=== PATIENT | male | born 1990 ===

== ENCOUNTER 2022-01-14 05:54 | Inpatient (IN) | payer OTHER ==
[~2022-01-14] VITALS: Ht 172.7 cm; Wt 66.8 kg
[2022-01-14 06:06] LABS: PCO2 Arterial 33.8 mmHg (35-45); PO2 Arterial 368 mmHg (80-100)
[2022-01-14 06:12] LABS: BASOPHILS ABSOLUTE AUTO 0.04 K/mm3 (0.00-0.23); BASOPHILS PERCENT AUTO 0 % (0-2); EOSINOPHILS ABSOLUTE AUTO 0.02 K/mm3 (0.00-0.68); EOSINOPHILS PERCENT AUTO 0 % (0-6); Hematocrit 51.2 % (37.0-53.0); IMMATURE GRAN ABSOLUTE AUTO 0.24 K/mm3 (0.00-0.10); IMMATURE GRAN PERCENT AUTO 2 % (0-1); LYMPHOCYTES ABSOLUTE AUTO 2.94 K/mm3 (0.84-5.20); LYMPHOCYTES PERCENT AUTO 20 % (21-46); MONOCYTES ABSOLUTE AUTO 0.81 K/mm3 (0.16-1.47); MONOCYTES PERCENT AUTO 6 % (4-13); Mean Corpuscular HGB 32.2 pg (26.0-34.0); Mean Corpuscular HGB Conc 35.2 g/dL (31.5-36.5); Mean Corpuscular Volume 92 fL (80-100); Mean Platelet Volume 10.8 fL (9.1-12.4); NEUTROPHILS ABSOLUTE AUTO 10.81 K/mm3 (1.96-9.15); NEUTROPHILS PERCENT AUTO 73 % (41-73); Platelet Count 255 K/mm3 (150-400); RDW Standard Deviation 40.1 fL (35.1-46.3); Red Blood Cell Count 5.59 M/mm3 (4.30-5.90); White Blood Cell Count 14.86 K/mm3 (4.00-11.30)
[2022-01-14 06:40] LABS: Alanine Aminotransfer (ALT/SGP 40 U/L (12-78); Albumin, Blood 4.5 g/dL (3.4-5.0); Albumin/Globulin Ratio 1.2 (0.8-1.8); Alk Phos 49 U/L (50-136); Anion Gap 12 mmol/L (6-16); Aspartate Aminotrans (AST/SGOT 33 U/L (12-37); Bilirubin, Total 1.1 mg/dL (0.1-1.0); Blood Urea Nitrogen 17 mg/dL (8-24); Bun/Creatinine Ratio 17.7 (12.0-20.0); CO2, Blood 22 mmol/L (21-32); Calcium, Blood 9.2 mg/dL (8.5-10.1); Chloride, Blood 104 mmol/L (98-108); Creatinine, Blood 0.96 mg/dL (0.60-1.20); Globulin, Blood 3.8 g/dL (2.2-4.0); Glomerular Filtration Rate >60 (60-); Glucose, Blood 188 mg/dL (70-99); Potassium, Blood 3.5 mmol/L (3.5-5.5); Sodium, Blood 138 mmol/L (136-145); Total Protein, Blood 8.3 g/dL (6.4-8.2)
[2022-01-14 07:15] LABS: U Amphetamine Screen Not Detected; U Barbituate Screen Not Detected; U Benzodiazapine Screen Not Detected; U Buprenorphine Screen Not Detected; U Cannabinoids Screen Not Detected; U Cocaine Screen Not Detected; U Methadone Screen Not Detected; U Methamphetamine Screen Not Detected; U Opiates Screen Not Detected; U Oxycodone Screen Not Detected; U Phencyclidine Screen Not Detected; U Propoxyphene Screen Not Detected
--- NOTE | 2022-01-14 09:30 | NUR ---
ADMIT PT ARRIVED TO ICU ROOM 11 VIA ER YISSEL AT 0900. PT IS INTUBATED AND SEDATED WITH PROPOFOL AT 40 MCG/KG/MIN. PT TRANSFERED TO ICU BED AND VENT. VENT SETTINGS AC 16, TV 450, PEEP 5, FIO2 50%. PT WITH COPIOUS CLEAR ORAL SECRETIONS. VITAL SIGNS STABLE. OGT IN PLACE. PEREZ TEMP PROBE IN PLACE WITH YELLOW URINE OUTPUT NOTED. PT WITH SCATTERED BLISTERS/MAYBERRY/BRUISING NOTED. SEE PHOTOS IN CHART. PT WITH C SPINE COLLAR IN PLACE. COLLAR TO REMAIN IN PLACE PER DR HOOKER. SBW RESTRAINTS IN PLACE. PT MOVES ALL EXTREMITIES TO NOXIOUS STIMULI. WILL CONTINUE TO MONITOR.
--- NOTE | 2022-01-14 12:16 | NUR ---
BRONCH PT BRONCHED BY DR DALLAS AT BEDSIDE. PT PREMEDICATED WITH 2 MG VERSED IV, 50 MCG FENTANYL IV, AND 40 MG ROCURONIUM IV. PROPOFOL INCREASED TO 70 MCG/KG/MIN. PT WITH LARGE AMOUNT OF BLACK SOOT NOTED DURING BRONCH. PT MED WITH ADDITIONAL 2 MG VERSED IV DURING BRONCH. VITAL SIGNS REMAINED STABLE. ETT WITHDRAWN BY RT TO 23 CM AT TEETH. PLAN TO KEEP PT INTUBATED THIS SHIFT. WILL CONTINUE TO MONITOR.
--- NOTE | 2022-01-14 13:50 | NUR ---
WOUND CARE DR HOOKER AT BEDSIDE. ASSISTED DR HOOKER WITH WOUND CLEANSE AND APPLICATION OF NEW DRESSINGS. NEW PHOTOS TAKEN.
[2022-01-14] MEDS ORDERED: OLAN5 PO (15:11)
[2022-01-14] MEDS ORDERED: BENZ1 PO (15:16)
--- NOTE | 2022-01-14 16:50 | NUR ---
SHIFT SUMMARY PT REMAINS INTUBATED AND SEDATED. VENT SETTINGS UNCHANGED. PT SEDATED WITH PROPOFOL AT 60 MCG/KG/MIN. LR INFUSING AT 150 ML/HR. PT GRIMMACES TO ANY MOVEMENT OR NOXIOUS STIMULI. PT MED WITH FENTANYL PRN PER EMAR. OGT IN PLACE TO LIS, MINIMAL OUTPUT NOTED. PEREZ TEMP PROBE REMAINS IN PLACE WITH DARK, CLOUDY, YELLOW URINE OUTPUT. WOUNDS TO BLE'S UNCHANGED. DRESSINGS REMAIN INTACT. SBW RESTRAINTS REMAIN IN PLACE. VITAL SIGNS STABLE. WILL CONTINUE TO MONITOR AND REPORT OFF TO ONCOMING RN.
--- NOTE | 2022-01-14 19:00 | NUR ---
ASSUMED CARE ASSUMED CARE OF PATIENT. REMAINS INTUBATED- AC/VC+ 16/450/5/30%. ETT 7.5, 24CM AT TEETH. SEDATED WITH PROPOFOL AT 60MCG/KG/MIN. WITHDRAWS EXTREMITIES TO NOXIOUS STIMULI. SLIGHT AMOUNT OF SPONTANEOUS MOVEMENT NOTED WITH NOXIOUS STIMULI. BILATERAL SOFT WRIST RESTRAINTS IN PLACE TO PREVENT SELF-EXTUBATION. MONITOR SHOWS NSR, RATE 90s. BP STABLE. TEMP 101.4F VIA PEREZ TEMP PROBE. OG TO LIS WITH BROWN DRAINAGE. PEREZ PATENT AND DRAINING TO GRAVITY- PINKISH-ORANGE URINE WITH SEDIMENT NOTED. ABRASION NOTED TO LEFT FOREARM. BILATERAL LOWER EXTREMITIES WITH DRSGS INTACT- PHOTOS OF WOUNDS ON CHART. LR INFUSING AT 150CC/HR PER ORDER. SEE SHIFT ASSESSMENT FOR FULL ASSESSMENT.
[2022-01-15 03:25] LABS: BASOPHILS ABSOLUTE AUTO 0.03 K/mm3 (0.00-0.23); BASOPHILS PERCENT AUTO 0 % (0-2); EOSINOPHILS ABSOLUTE AUTO 0.08 K/mm3 (0.00-0.68); EOSINOPHILS PERCENT AUTO 1 % (0-6); Hematocrit 45.8 % (37.0-53.0); Hemoglobin 16.3 g/dL (13.5-17.5); IMMATURE GRAN ABSOLUTE AUTO 0.06 K/mm3 (0.00-0.10); IMMATURE GRAN PERCENT AUTO 0 % (0-1); LYMPHOCYTES ABSOLUTE AUTO 2.06 K/mm3 (0.84-5.20); LYMPHOCYTES PERCENT AUTO 14 % (21-46); MONOCYTES ABSOLUTE AUTO 1.35 K/mm3 (0.16-1.47); MONOCYTES PERCENT AUTO 10 % (4-13); Mean Corpuscular HGB 32.5 pg (26.0-34.0); Mean Corpuscular HGB Conc 35.6 g/dL (31.5-36.5); Mean Corpuscular Volume 91 fL (80-100); Mean Platelet Volume 11.1 fL (9.1-12.4); NEUTROPHILS ABSOLUTE AUTO 10.69 K/mm3 (1.96-9.15); NEUTROPHILS PERCENT AUTO 75 % (41-73); Platelet Count 182 K/mm3 (150-400); RDW Coefficient Variation 12.2 % (11.7-14.2); RDW Standard Deviation 40.5 fL (35.1-46.3); Red Blood Cell Count 5.01 M/mm3 (4.30-5.90); White Blood Cell Count 14.27 K/mm3 (4.00-11.30)
[2022-01-15 03:46] LABS: Alanine Aminotransfer (ALT/SGP 28 U/L (12-78); Albumin, Blood 3.2 g/dL (3.4-5.0); Alk Phos 41 U/L (50-136); Anion Gap 9 mmol/L (6-16); Aspartate Aminotrans (AST/SGOT 24 U/L (12-37); Bilirubin, Total 1.2 mg/dL (0.1-1.0); Blood Urea Nitrogen 11 mg/dL (8-24); Bun/Creatinine Ratio 12.9 (12.0-20.0); CO2, Blood 25 mmol/L (21-32); Calcium, Blood 8.4 mg/dL (8.5-10.1); Chloride, Blood 107 mmol/L (98-108); Creatinine, Blood 0.85 mg/dL (0.60-1.20); Globulin, Blood 3.2 g/dL (2.2-4.0); Glomerular Filtration Rate >60 (60-); Glucose, Blood 92 mg/dL (70-99); Potassium, Blood 3.2 mmol/L (3.5-5.5); Sodium, Blood 141 mmol/L (136-145); Total Protein, Blood 6.4 g/dL (6.4-8.2)
[2022-01-15 04:20] LABS: Source, Urine Foley catheter
[2022-01-15 04:23] LABS: Bilirubin, Urine Neg (Neg); Blood, Urine 3+ (Neg); Glucose Qualitative, Urine Neg (Neg); Ketones, Urine 4+ (Neg); Leukocyte Esterase, Urine 1+ (Neg); Nitrite, Urine Neg (Neg); Protein, Urine 2+ (Neg); Urobilinogen, Urine 1+ (Normal)
[2022-01-15 04:40] LABS: Appearance, Urine Clear (Clear); Color, Urine Yellow (P-Yellow)
[2022-01-15 04:41] LABS: Bacteria Mod /hpf; Squamous Epithelial Cells Not Seen /hpf (Few); White Blood Cells, Urine 0-2 /hpf (0-5)
--- NOTE | 2022-01-15 06:17 | NUR ---
SHIFT SUMMARY NO ACUTE CHANGES. REMAINS INTUBATED. SBT STARTED AT 0440- PRESSURE SUPPORT OF 7. PT REMAINS ON SPONTANEOUS AT THIS TIME. PROPOFOL BETWEEN 20-75MCG/KG/MIN DURING NOC- NOW INFUSING AT 25MCG/KG/MIN. OPENS EYES SLIGHTLY TO VERBAL STIMULI AND SQEEZES HANDS/MOVES EXTREMITIES TO COMMAND. MEDICATED WITH FENTANYL 50MCG IV X 3 DOSES FOR PAIN/DISCOMFORT. VSS. TMAX 102F. OG TO LIS WITH SCANT CLEAR DRAINAGE. PEREZ PATENT AND DRAINING TO GRAVITY. BLE DRSGS DRY AND INTACT AT THIS TIME. LR INFUSING AT 150CC/HR. WILL REPORT TO ONCOMING RN WHEN AVAILABLE.
--- NOTE | 2022-01-15 06:30 | NUR ---
HYPOKALEMIA/DECREASED UO DR. DALLAS NOTIFIED OF POTASSIUM LEVEL OF 3.2 AND OF UA RESULTS AND DECREASE IN URINE OUTPUT. NEW ORDER RECEIVED FOR POTASSIUM PLACEMENT AT THIS TIME. WILL CONTINUE CURRENT IV FLUID ORDERS.
--- NOTE | 2022-01-15 10:30 | NUR ---
SEDATION VACATION PROPOFOL ON STANDBY FOR 2 HOURS THIS AM. PT SLOW TO WAKE, BUT EVENTUALLY PT WOULD OPEN EYES TO VERBAL STIMULI AND SQUEEZE HANDS UPON COMMAND. PT EASILY AGITATED WITH NURSING CARE DURING SEDATION VACATION. PROPOFOL RESUMED AT 40 MCG/KG/MIN AT THIS TIME.
--- NOTE | 2022-01-15 11:34 | NUR ---
WOUND CARE/TRANSFER WOUNDS CLEANSED AND DRIED. SILVADENE APPLIED, WOUNDS THEN WRAPPED ORDERED. PT PREMEDICATED WITH FENTANYL PER EMAR. TRANSFER PROCESS INITIATED BY DR HOOKER TO [facility] [place]. PT FAMILY AT BEDSIDE AND UPDATED TO PLAN FOR TRANSFER. PT FATHER IS AGREEABLE TO TRANSFER. AWAITING BED ASSIGNMENT AT THIS TIME. WILL CONTINUE TO MONITOR.
[2022-01-15 14:13] LABS: Influenza A, PCR NEGATIVE (NEGATIVE); Influenza B, PCR NEGATIVE (NEGATIVE); Resp Syncytial Virus, PCR NEGATIVE (NEGATIVE); SARS-Cov-2 (COVID-19) PCR, MMC NEGATIVE (NEGATIVE)
--- NOTE | 2022-01-15 14:44 | NUR ---
TRANSFER TO [facility] PT FATHER AT BEDSIDE. PT TO BE TRANSFERED TO [facility]. PT TAKEN BY [facility]. PT TRANFERED TO [facility] WITHOUT COMPLICATION. PT LEFT ICU ROOM 11 AT 1435. REPORT OFF TO REACH RN, ALL QUESTIONS ANSWERED. PT BELONGINGS SENT HOME WITH PT FATHER.
== END 2022-01-15 15:09 | disposition short-term general hospital (02) | DRG 935 ==
LOC: ER 05:54 → EDBD 07:50 → ICUW 07:50
PROVIDERS: Emergency Medicine; Internal Medicine Critical Care Medicine; ADMIT Surgery
PROC: 5A1935Z Respiratory Ventilation, Less than 24 Consecutive Hours (ICD-10-PCS; principal; 2022-01-14)
PROC: 0BJ08ZZ Inspection of Tracheobronchial Tree, Via Natural or Artificial Opening Endoscopic (ICD-10-PCS; 2022-01-14)
PROC: 0H9LXZZ Drainage of Left Lower Leg Skin, External Approach (ICD-10-PCS; 2022-01-14)
PROC: 0H9HXZZ Drainage of Right Upper Leg Skin, External Approach (ICD-10-PCS; 2022-01-14)
PROC: 0H9JXZZ Drainage of Left Upper Leg Skin, External Approach (ICD-10-PCS; 2022-01-14)
PROC: 0H9KXZZ Drainage of Right Lower Leg Skin, External Approach (ICD-10-PCS; 2022-01-14)
DX: T25.212A Burn of second degree of left ankle, initial encounter (principal); T25.211A Burn of second degree of right ankle, initial encounter; F20.9 Schizophrenia, unspecified; Z20.822 Contact with and (suspected) exposure to COVID-19; T24.212A Burn of second degree of left thigh, initial encounter; T24.232A Burn of second degree of left lower leg, initial encounter; T24.231A Burn of second degree of right lower leg, initial encounter; V48.5XXA Car driver injured in noncollision transport accident in traffic accident, initial encounter; Y93.89 Activity, other specified; Y92.89 Other specified places as the place of occurrence of the external cause
CPT/HCPCS: 0241U; 16020; 36415; 36600; 51702; 70450; 71045; 71260; 72125; 74177; 80053; 81001; 82375; 82550; 82803; 85025; 86850; 86900; 86901; 87086; 94002; 96374; 96376; 99291-25; A9270; C9113; G0480; J0330; J1650; J2060; J2250; J2704; J3010; J3480; J7120; Q9967